=== PATIENT | male | born 1985 | race Caucasian/White ===

== ENCOUNTER 2020-09-19 16:08 | Emergency (ER) | payer OTHER ==
[2020-09-19] MEDS ORDERED: IBUPROFEN 600 MG TABLET (FP) PO ONE ×2 (17:45→17:48)
[2020-09-19 18:02] VITALS: BP 129/77; PULSE 77; TEMP 98.2; BMI 28.3
== END 2020-09-19 18:12 | disposition home or self-care (01) ==
LOC: FER 16:08
DX: S59.901A Unspecified injury of right elbow, initial encounter (principal)
CPT/HCPCS: 73070-TC-RT-FY; 99284-25

== ENCOUNTER 2020-11-28 17:45 | Emergency (ER) | payer OTHER, SELFPAY ==
[2020-11-28] MEDS ORDERED: IBUPROFEN 400 MG TABLET (FP) PO ONE ×2 (17:52→18:04)
[2020-11-28 17:58] VITALS: BP 161/104; PULSE 80; TEMP 98.3; BMI 28.3
== END 2020-11-28 18:11 | disposition home or self-care (01) ==
LOC: FER 17:45
DX: G44.209 Tension-type headache, unspecified, not intractable (principal); M25.561 Pain in right knee; H93.13 Tinnitus, bilateral
CPT/HCPCS: 99283-25

== ENCOUNTER 2021-11-01 10:29 | Emergency (ER) | payer OTHER ==
[2021-11-01 10:40] VITALS: BP 148/95; PULSE 95; TEMP 98.7; BMI 29.0
[2021-11-01] MEDS ORDERED: IBUPROFEN 600 MG TABLET (FP) PO ONE ×2 (11:01→11:08)
== END 2021-11-01 12:21 | disposition home or self-care (01) ==
LOC: FER 10:29
DX: S80.912A Unspecified superficial injury of left knee, initial encounter (principal); W22.8XXA Striking against or struck by other objects, initial encounter
CPT/HCPCS: 73562-TC-LT-FY; 99283-25

== ENCOUNTER 2023-01-01 15:49 | Emergency (ER) | payer OTHER ==
[2023-01-01 16:04] VITALS: BP 155/107; PULSE 93; RESP 20; TEMP 98.3; BMI 30.3
== END 2023-01-01 17:36 | disposition home or self-care (01) ==
LOC: FER 15:49
DX: S83.91XA Sprain of unspecified site of right knee, initial encounter (principal); X50.1XXA Overexertion from prolonged static or awkward postures, initial encounter; Y04.0XXA Assault by unarmed brawl or fight, initial encounter; Y99.0 Civilian activity done for income or pay
CPT/HCPCS: 99283-25